=== PATIENT | male | born 1955 | race African-American/Black ===

== ENCOUNTER 2018-04-08 10:34 | Inpatient (IN) | payer MEDICARE, MEDICAID ==
[~2018-04-08] VITALS: Ht 182.9 cm; Wt 105.2 kg
[2018-04-08] VITALS (14 sets, daily range): BP systolic 88–183; BP diastolic 64–91; BMI 31.6
--- NOTE | ~2018-04-08 | MORECARE ---
CASE MANAGEMENT DISCHARGE SUMMARY PATIENT: NEO DUMONT UNIT: [id number] ADM DATE: 04/08/18 AGE: 62 : 55 SEX: M ROOM/BED: D.2309 AUTHOR: SAM COCHRAN PHYSICIAN: REFERRING PHYSICIAN: DHARA MOTA MD DATE OF SERVICE: 04/08/18 Discharge Plan Patient Name: NEO DUMONT Facility: [facility]:[place] : 1955 Planned Disposition: [facility] Facility w Plan Readm Anticipated Discharge Date: 04/10/18 Discharge Date: Expected LOS: 2 Initial Reviewer: [email or web address] Initial Review Date: 04/08/2018 Generated: 04/08/18 6:28 pm DCP- Discharge Planning Updated by [email or web address]: Kiki Aguilera on 04/08/18 4:[address] Patient Name: NEO DUMONT Admission Status: ER Accout number: [id number] Admission Date: 04-08-2018 : 1955 Admission Diagnosis: Attending: DHARA MOTA Current LOS: 1 Anticipated DC Date: 04-10-2018 Planned Disposition: [facility] Facility w Plan Readm Primary Insurance: MEDICARE A & B Discharge Planning Comments: CM met with patient to complete initial dc planning assessment. CM educated patient on the CM role and verbal consent given by patient to complete assessment. Patient lives at [facility] in [place]. He is a dialysis patient M-W-F and is transported to and from dialysis by the assisted. At discharge patient plans to return to the assisted and feels this is a safe discharge. Patient denied known discharge needs at this time. CM will continue to follow and will assist as needed with dc plans/needs. See below for more assessment information. Store Facility Technician: Kiki Aguilera RN, [facility] DCPIA - Discharge Planning Initial Assessment Updated by [email or web address]: Kiki Aguilera on 04/08/18 5:23 pm * Is the patient Alert and Oriented? Yes * How many steps to enter\exit or inside your home? None * PCP [facility] * [facility]acy [facility] * [facility] * [facility] * ADLs Partial Dependent * Partial ADLs (Assistance needed) Ambulation Bathing Dressing Medication Management Toileting Transfers * Equipment Wheelchair * List name and contact numbers for known caregivers / representatives who currently or will assist patient after discharge: David Dumont - brother Feroz Dumont - brother Viri Dumont - sister * Verbal permission to speak to the caregivers and representatives has been obtained from the patient. Yes * Community resources currently utilized None * Additional services required to return to the preadmission environment? No * Can the patient safely return to the preadmission environment? Yes * Has this patient been hospitalized within the prior 30 days at any hospital? No Patient Name: NEO DUMONT Page [id number] at 1728 All edits/amendments must be made on the electronic document DICTATION DATE: 04/08/181727 GETTERING OPERATOR: GURINDER 04/08/181727 RPT#: [id number] DC DATE: STATUS: ADM IN [facility] [address] [place] [address] END OF REPORT
--- NOTE | ~2018-04-08 | MORECARE ---
CASE MANAGEMENT DISCHARGE SUMMARY PATIENT: NEO DUMONT UNIT: [id number] ADM DATE: 04/08/18 AGE: 62 : 55 SEX: M ROOM/BED: D.2309 AUTHOR: SAM COCHRAN PHYSICIAN: REFERRING PHYSICIAN: DHARA MOTA MD DATE OF SERVICE: 04/09/18 Discharge Plan Patient Name: NEO DUMONT Facility: [facility]:[place] : 1955 Planned Disposition: [facility] Facility w Plan Readm Anticipated Discharge Date: 04/10/18 Discharge Date: Expected LOS: 2 Initial Reviewer: [email or web address] Initial Review Date: 04/08/2018 Generated: 04/09/18 12:27 pm DCP- Discharge Planning Updated by [email or web address]: Kiki Aguilera on 04/08/18 4:[address] Patient Name: NEO DUMONT Admission Status: ER Accout number: [id number] Admission Date: 04-08-2018 : 1955 Admission Diagnosis: Attending: DHARA MOTA Current LOS: 1 Anticipated DC Date: 04-10-2018 Planned Disposition: [facility] Facility w Plan Readm Primary Insurance: MEDICARE A & B Discharge Planning Comments: CM met with patient to complete initial dc planning assessment. CM educated patient on the CM role and verbal consent given by patient to complete assessment. Patient lives at [facility] in [place]. He is a dialysis patient M-W-F and is transported to and from dialysis by the fpc. At discharge patient plans to return to the fpc and feels this is a safe discharge. Patient denied known discharge needs at this time. CM will continue to follow and will assist as needed with dc plans/needs. See below for more assessment information. Pipe Finisher: Kiki Aguilera RN, [facility] DCPIA - Discharge Planning Initial Assessment Updated by [email or web address]: Kiki Aguilera on 04/08/18 5:23 pm * Is the patient Alert and Oriented? Yes * How many steps to enter\exit or inside your home? None * PCP [facility] * Pharmacy [facility] * Preadmission Environment [facility] * [facility] * ADLs Partial Dependent * Partial ADLs (Assistance needed) Ambulation Bathing Dressing Medication Management Toileting Transfers * Equipment Wheelchair * List name and contact numbers for known caregivers / representatives who currently or will assist patient after discharge: David Dumont - brother Feroz Dumont - brother Viri Dumont - sister * Verbal permission to speak to the caregivers and representatives has been obtained from the patient. Yes * Community resources currently utilized None * Additional services required to return to the preadmission environment? No * Can the patient safely return to the preadmission environment? Yes * Has this patient been hospitalized within the prior 30 days at any hospital? No External Providers External Provider: [facility] Next Contact Date: Service Request Date: Service Type: Resolution: Reviewer: Comments: Last DP export: 04/08/18 4:28 p Patient Name: NEO DUMONT Page 60754 at 1127 All edits/amendments must be made on the electronic document DICTATION DATE: 04/09/181126 REFORMATORY ATTENDANT: GURINDER 04/09/181126 RPT#: [id number] DC DATE: STATUS: ADM IN [facility] [address] [place] [address] END OF REPORT
--- NOTE | ~2018-04-08 | MORECARE ---
CASE MANAGEMENT DISCHARGE SUMMARY PATIENT: NEO DUMONT UNIT: [id number] ADM DATE: 04/08/18 AGE: 62 : 55 SEX: M ROOM/BED: D.2304 AUTHOR: SAMMIE,DOC PHYSICIAN: REFERRING PHYSICIAN: DHARA MOTA MD DATE OF SERVICE: 04/10/18 Discharge Plan Patient Name: NEO DUMONT Facility: [facility]:[place] : 1955 Planned Disposition: [facility] Facility w Plan Readm Anticipated Discharge Date: 04/10/18 Discharge Date: 04/10/2018 Expected LOS: 2 Initial Reviewer: [email or web address] Initial Review Date: 04/08/2018 Generated: 04/10/18 7:07 pm Comments DCP- Discharge Planning Updated by [email or web address]: Ivette Payan on 04/10/18 5:[address] Late Entry 04/09/18 @ 1100 CM was notified that patient needed transfer to higher level of care for neurology evaluation. CM contacted transfer center and faxed records. CM awaiting placement. CM will continue to follow and assist as needed with discharge planning / needs. DCP- Discharge Planning Updated by [email or web address]: Kiki Aguilera on 04/08/18 4:[address] Patient Name: NEO DUMONT Admission Status: ER Accout number: [id number] Admission Date: 04-08-2018 : 1955 Admission Diagnosis: Attending: DHARA MOTA Current LOS: 1 Anticipated DC Date: 04-10-2018 Planned Disposition: [facility] Facility w Plan Readm Primary Insurance: MEDICARE A & B Discharge Planning Comments: CM met with patient to complete initial dc planning assessment. CM educated patient on the CM role and verbal consent given by patient to complete assessment. Patient lives at [facility] in [place]. He is a dialysis patient M-W-F and is transported to and from dialysis by the group home. At discharge patient plans to return to the group home and feels this is a safe discharge. Patient denied known discharge needs at this time. CM will continue to follow and will assist as needed with dc plans/needs. See below for more assessment information. Rope Laying Machine Operator: Kiki Aguilera RN, [facility] DCPIA - Discharge Planning Initial Assessment Updated by [email or web address]: Kiki Aguilera on 04/08/18 5:23 pm * Is the patient Alert and Oriented? Yes * How many steps to enter\exit or inside your home? None * PCP [facility] * [facility] * Preadmission Environment [facility] * Facility Name [facility] * ADLs Partial Dependent * Partial ADLs (Assistance needed) Ambulation Bathing Dressing Medication Management Toileting Transfers * Equipment Wheelchair * List name and contact numbers for known caregivers / representatives who currently or will assist patient after discharge: David Dumont - brother Feroz Dumont - brother Viri Dumont - sister * Verbal permission to speak to the caregivers and representatives has been obtained from the patient. Yes * Community resources currently utilized None * Additional services required to return to the preadmission environment? No * Can the patient safely return to the preadmission environment? Yes * Has this patient been hospitalized within the prior 30 days at any hospital? No Last DP export: 04/09/18 10:27 a Patient Name: NEO DUMONT Page 83039 at 1807 All edits/amendments must be made on the electronic document DICTATION DATE: 04/10/181806 LOAN REVIEWER: GURINDER 04/10/181806 RPT#: [id number] DC DATE:04/10/18 STATUS: DIS IN [facility] [address] [place] [address] END OF REPORT
[2018-04-08] MEDS ORDERED: BAYER CHEWABLE81 MG PO (10:38)
[2018-04-08] MEDS ORDERED: CARBIDOPA-LEVO1 EAC4 PO (10:39)
[2018-04-08] MEDS ORDERED: LASIX80 MG PO (10:39)
[2018-04-08] MEDS ORDERED: NEPHROCAPS SOFTG1 MG PO (10:39)
[2018-04-08] MEDS ORDERED: LIPITOR20 MG PO (10:39)
[2018-04-08] MEDS ORDERED: PROTONIX40 MG PO (10:40)
[2018-04-08] MEDS ORDERED: DEPAKOTE125 MG PO (10:40)
[2018-04-08] MEDS ORDERED: RENVELA800 MG PO (10:40)
[2018-04-08] MEDS ORDERED: ULTRAM50 MG PO (10:41)
[2018-04-08] MEDS ORDERED: SENSIPAR60 MG PO (10:41)
[2018-04-08] MEDS ORDERED: DONEPEZIL HCL10 M1 PO (10:42)
[2018-04-08] MEDS ORDERED: AMANTADINE100 M1 PO (10:42)
[2018-04-08 11:01] LABS: BASOPHILS 0.2 % (0-2); EOSINOPHILS 2.4 % (0-7); HEMATOCRIT 31.5 % (42.0-54.0); IMMATURE GRANULOCYTES 0.2 % (0-5); LYMPHOCYTES 16.9 % (15-50); MCH 33.3 pg (26.0-34.0); MCHC 31.7 g/dL (31.0-37.0); MEAN PLATELET VOLUME 9.8 fL (7.4-10.4); MONOCYTES 10.7 % (2-11); NEUTROPHILS 69.6 % (40-80); PLATELET COUNT 181 10x3/uL (130-400); RDW 14.3 % (11.5-14.5); WBC 6.4 10x3/uL (4.8-10.8)
[2018-04-08 11:24] LABS: ALBUMIN 3.7 g/dL (3.4-5.0); BILIRUBIN - TOTAL 0.16 mg/dL (0.2-1.3); CALCIUM 8.4 mg/dL (8.5-10.1); CARBON DIOXIDE 29.5 mmol/L (21.0-32.0); CREATININE - SERUM 7.3 mg/dL (0.6-1.3); MAGNESIUM - SERUM 2.8 mg/dL (1.8-2.4); POTASSIUM - SERUM 4.5 mmol/L (3.5-5.1); PROTEIN - SERUM 7.3 g/dL (6.4-8.2)
[2018-04-08 17:29] LABS: ALBUMIN 3.7 g/dL (3.4-5.0); BILIRUBIN - DIRECT 0.07 mg/dL (0.00-0.30); BILIRUBIN - INDIRECT 0.13 mg/dL (0.00-1.00); BILIRUBIN - TOTAL 0.2 mg/dL (0.2-1.3)
[2018-04-09] VITALS (18 sets, daily range): BP systolic 106–168; BP diastolic 57–92; Ht 182.9 cm; Wt 105.2 kg
[2018-04-09 04:34] LABS: BASOPHILS 0.3 % (0-2); EOSINOPHILS 2.8 % (0-7); HEMATOCRIT 32.3 % (42.0-54.0); HEMOGLOBIN 10.3 g/dL (13.5-17.5); IMMATURE GRANULOCYTES 0.3 % (0-5); LYMPHOCYTES 19.7 % (15-50); MCH 33.2 pg (26.0-34.0); MCHC 31.9 g/dL (31.0-37.0); MCV 104.2 fL (80.0-100.0); MEAN PLATELET VOLUME 10.4 fL (7.4-10.4); MONOCYTES 9.8 % (2-11); NEUTROPHILS 67.1 % (40-80); PLATELET COUNT 204 10x3/uL (130-400); RDW 14.3 % (11.5-14.5); WBC 7.2 10x3/uL (4.8-10.8)
[2018-04-09 04:58] LABS: ANION GAP 15.7 mmol/L (8-16); CALCIUM 8.8 mg/dL (8.5-10.1); CARBON DIOXIDE 28.6 mmol/L (21.0-32.0); MAGNESIUM - SERUM 2.8 mg/dL (1.8-2.4); POTASSIUM - SERUM 4.3 mmol/L (3.5-5.1)
[2018-04-10 03:00] VITALS: BP 160/83
[2018-04-10 04:31] LABS: BASOPHILS 0.2 % (0-2); EOSINOPHILS 4.7 % (0-7); HEMATOCRIT 31.5 % (42.0-54.0); HEMOGLOBIN 10.2 g/dL (13.5-17.5); IMMATURE GRANULOCYTES 0.3 % (0-5); LYMPHOCYTES 25.1 % (15-50); MCH 33.6 pg (26.0-34.0); MCHC 32.4 g/dL (31.0-37.0); MCV 103.6 fL (80.0-100.0); MEAN PLATELET VOLUME 9.9 fL (7.4-10.4); MONOCYTES 8.4 % (2-11); NEUTROPHILS 61.3 % (40-80); PLATELET COUNT 195 10x3/uL (130-400); RBC 3.04 10x6/uL (4.20-6.10); RDW 13.9 % (11.5-14.5); WBC 6.5 10x3/uL (4.8-10.8)
[2018-04-10 04:49] LABS: ANION GAP 19.1 mmol/L (8-16); CARBON DIOXIDE 26.5 mmol/L (21.0-32.0); POTASSIUM - SERUM 4.6 mmol/L (3.5-5.1)
[2018-04-10 05:04] LABS: CREATININE - SERUM 11.5 mg/dL (0.6-1.3)
[2018-04-10 08:03] LABS: UDS - AMPHET NEGATIVE QUAL (NEGATIVE); UDS - BARB NEGATIVE QUAL (NEGATIVE); UDS - BENZO NEGATIVE QUAL (NEGATIVE); UDS - COCAINE NEGATIVE QUAL (NEGATIVE); UDS - OPIATE NEGATIVE QUAL (NEGATIVE); UDS - PCP NEGATIVE QUAL (NEGATIVE); UDS - THC NEGATIVE QUAL (NEGATIVE)
[2018-04-10 08:06] LABS: APPEARANCE TURBID (CLEAR); BACTERIA FEW /hpf (NONE SEEN); BILIRUBIN NEGATIVE (NEGATIVE); COLOR RED (YELLOW); EPITHELIAL CELLS 0-5 /hpf (0-5); GLUCOSE NEGATIVE (NEGATIVE); KETONE NEGATIVE (NEGATIVE); MUCUS <1+ /lpf (NONE SEEN); NITRITE NEGATIVE (NEGATIVE); PROTEIN 3+ mg/dL (NEGATIVE); RED CELLS - URINE >50 /hpf (0-5); SPECIFIC GRAVITY 1.005 (1.005-1.020); UROBILINOGEN NORMAL (NORMAL); WHITE CELLS - URINE 25-50 /hpf (0-5)
== END 2018-04-10 08:15 | disposition short-term general hospital (02) | DRG 100 ==
LOC: D.ER 10:34 → D.EDHOLD 12:59 → OBSVTIME 13:00 → D.ICU 13:35
PROVIDERS: Family Medicine; Internal Medicine Nephrology
DX: G40.89 Other seizures (principal); N18.6 End stage renal disease; I12.0 Hypertensive chronic kidney disease with stage 5 chronic kidney disease or end stage renal disease; T82.9XXA Unspecified complication of cardiac and vascular prosthetic device, implant and graft, initial encounter; Z99.2 Dependence on renal dialysis; G20 Parkinson's disease; F02.80 Dementia in other diseases classified elsewhere, unspecified severity, without behavioral disturbance, psychotic disturbance, mood disturbance, and anxiety